=== PATIENT | female | born 1960 | race African-American/Black ===

== ENCOUNTER 2017-05-20 12:29 | Inpatient (IN) | payer MEDICARE, OTHER ==
[~2017-05-20] VITALS: Ht 170.2 cm; Wt 69.9 kg
[2017-05-20] MEDS ORDERED: AMLO2.5T45 PO (12:36)
[2017-05-20] MEDS ORDERED: CYCL5TAB PO (12:36)
[2017-05-20] MEDS ORDERED: TRAM50TA3 PO ×2 (12:36→23:08)
[2017-05-20] MEDS ORDERED: HYDR12.529 PO (12:36)
[2017-05-20] MEDS ORDERED: METO-396 PO (12:36)
[2017-05-20] MEDS ORDERED: ONDANSETRON HCL 4MG/2ML VIAL IV STA (13:35)
[2017-05-20] MEDS ORDERED: MORPHINE SULFATE 4 MG/ML CPJ (NOT FOR IM USE) IV STA (13:35)
[2017-05-20] MEDS ORDERED: NITROGLYCERIN OINT 1GM/INCH UDPKT TD STA (13:35)
[2017-05-20] MEDS ORDERED: ASPIRIN 325MG TABLET PO ONE (13:45)
[2017-05-20 14:24] LABS: BASOPHILS % 0.4 % (0.0-2.0); EOSINOPHILS % 0.1 % (0.0-5.0); HEMATOCRIT. 38.6 % (36.0-48.0); HEMOGLOBIN. 13.1 g/dL (12.0-16.0); LYMPHOCYTES % 9.6 % (20.0-50.0); MEAN CORPUSCULAR HEMOGLOBIN 32.8 pg (28.0-32.0); MEAN CORPUSCULAR VOLUME 96.8 fL (81.0-99.0); MEAN PLATELET VOLUME 8.2 fl (7.4-10.4); NEUTROPHILS % 75.9 % (40.0-76.0); PLATELET 268 x1000/uL (130-400); RED BLOOD CELL COUNT 3.98 mill/uL (4.2-5.4); RED CELL DISTRIBUTION WIDTH 15.5 % (11.6-14.6)
[2017-05-20 14:35] LABS: D-DIMER 2.65 mg/L FEU (<0.50); INR 1.3; PARTIAL THROMBOPLASTIN TIME 27.5 sec (23.4-31.0)
[2017-05-20 14:39] LABS: CARBON DIOXIDE 31 mEq/L (21-32); CHLORIDE 93 mEq/L (98-107); CREATINE KINASE 34 IU/L (26-192); TROPONIN I < 0.02 ng/mL (0.00-0.04)
[2017-05-20] MEDS ORDERED: POTASSIUM CHLORIDE 20MEQ TABLET SR PO ONE (14:45)
[2017-05-20] MEDS ORDERED: KCL 10MEQ/50ML PREMIX 50 ML IV ONE (14:45)
[2017-05-20] MEDS ORDERED: IOHEXOL-350 100 ML BOTTLE ONE (15:11)
[2017-05-20] MEDS ORDERED: METOPROLOL TARTRATE 25MG TABLET PO SCH (17:00)
[2017-05-20] MEDS ORDERED: DILTIAZEM HCL 5MG/ML 5ML VIAL IV ONE (17:15)
[2017-05-20] MEDS ORDERED: MAGNESIUM 1 G PREMIX 100 ML IV ONE (17:30)
[2017-05-20] MEDS ORDERED: DILTIAZEM HCL 5MG/ML 5ML VIAL IV PRN (18:38)
[2017-05-20] MEDS ORDERED: ENOXAPARIN 80MG/0.8ML SYR SUBCUT SCH (18:39)
[2017-05-20] MEDS ORDERED: MORPHINE SULFATE 4 MG/ML CPJ (NOT FOR IM USE) IV PRN (19:30)
[2017-05-20 19:52] VITALS: BP 133/95
[2017-05-20 20:00] VITALS: BP 133/95
[2017-05-20] MEDS: AMLODIPINE 5MG TABLET PO SCH (21:38)
[2017-05-20] MEDS ORDERED: ASPI-1159 PO (23:08)
[2017-05-20] MEDS ORDERED: GABA-531 PO (23:08)
[2017-05-20] MEDS ORDERED: IBUP-2028 PO (23:08)
[2017-05-20 23:43] VITALS: BP 127/96
[2017-05-20] MEDS: MORPHINE SULFATE 10 MG/ML CPJ IV PRN (23:54)
[2017-05-21 05:09] VITALS: BP 116/72
[2017-05-21] MEDS: MORPHINE SULFATE 10 MG/ML CPJ IV PRN ×3 (05:20→16:12)
[2017-05-21 06:52] LABS: HEMATOCRIT. 34.7 % (36.0-48.0); HEMOGLOBIN. 11.8 g/dL (12.0-16.0); MEAN CORPUSCULAR HEMOGLOBIN 32.9 pg (28.0-32.0); MEAN CORPUSCULAR VOLUME 96.9 fL (81.0-99.0); MEAN PLATELET VOLUME 8.8 fl (7.4-10.4); PLATELET 248 x1000/uL (130-400); RED BLOOD CELL COUNT 3.58 mill/uL (4.2-5.4); RED CELL DISTRIBUTION WIDTH 15.4 % (11.6-14.6)
[2017-05-21 08:51] LABS: CARBON DIOXIDE 29 mEq/L (21-32); CHLORIDE 92 mEq/L (98-107)
[2017-05-21] MEDS ORDERED: MEDICATION NOT ON FORMULARY EA (Metoprolol Succinate 100 MG) PO SCH (09:00)
[2017-05-21 09:03] LABS: CLARITY URINE TURBID (CLEAR); COLOR URINE DARK YELLOW (YELLOW); GLUCOSE URINE NEGATIVE (NEGATIVE); KETONES URINE NEGATIVE (NEGATIVE); LEUKOCYTE ESTERASE URINE 2+ (NEGATIVE); NITRITE URINE NEGATIVE (NEGATIVE); OCCULT BLOOD URINE 1+ (NEGATIVE); PH URINE 5.5 (4.5-8.0); PROTEIN URINE NEGATIVE (NEGATIVE); SPECIFIC GRAVITY URINE 1.047 (1.005-1.030)
[2017-05-21 09:42] LABS: *AMPHETAMINES SCREEN URINE NEGATIVE (NEGATIVE); *BARBITURATES SCREEN URINE NEGATIVE (NEGATIVE); *BENZODIAZEPINES SCREEN URINE NEGATIVE (NEGATIVE); *COCAINE SCREEN URINE NEGATIVE (NEGATIVE); CANNABINOID URINE SCREEN PRESUMTIVE POSITIVE (NEGATIVE); METHADONE URINE SCREEN NEGATIVE (NEGATIVE); OPIATES URINE SCREEN PRESUMTIVE POSITIVE (NEGATIVE); PHENCYCLIDINE URINE SCREEN NEGATIVE (NEGATIVE)
[2017-05-21] MEDS: ENOXAPARIN 40MG/0.4ML SYR SUBCUT SCH (10:57)
[2017-05-21] MEDS: AMLODIPINE 5MG TABLET PO SCH ×2 (10:57→21:21)
[2017-05-21] MEDS: ASPIRIN 81MG EC TABLET PO SCH (10:58)
[2017-05-21 12:22] VITALS: BP 132/92
[2017-05-21 12:30] LABS: HEPATITIS B SURFACE ANTIGEN NEGATIVE
[2017-05-21 12:57] LABS: HEPATITIS B CORE AB IGM NEGATIVE
[2017-05-21 12:59] LABS: HEPATITIS A AB IGM NEGATIVE (NEGATIVE)
[2017-05-21] MEDS ORDERED: POTASSIUM CHLORIDE INJ 40 MEQ in DEXT 5% WATER 250 ML IV SCH (13:00)
[2017-05-21] MEDS ORDERED: IBUPROFEN 800MG TABLET PO PRN (15:15)
[2017-05-21 16:00] VITALS: BP 109/83
[2017-05-21] MEDS ORDERED: MAGNESIUM 2 G PREMIX 50 ML IV SCH (17:00)
[2017-05-21] MEDS: CEFTRIAXONE 1 G PREMIX 50 ML IV SCH (17:42)
[2017-05-21] MEDS: DEXT 5%/0.45% NACL KCL 20MEQ/L 1,000 ML IV SCH (17:42)
[2017-05-21 20:00] VITALS: BP 129/92
[2017-05-21] MEDS: METOPROLOL TARTRATE 50MG TABLET PO SCH (21:21)
[2017-05-22] VITALS: BP 111/79
[2017-05-22 04:00] VITALS: BP 130/86
[2017-05-22] MEDS: MORPHINE SULFATE 10 MG/ML CPJ IV PRN ×2 (06:03→20:57)
[2017-05-22 06:53] LABS: HEMATOCRIT 35.5 % (36.0-48.0); HEMOGLOBIN 12.1 g/dL (12.0-16.0); MEAN CORPUSCULAR HEMOGLOBIN 32.8 pg (28.0-32.0); MEAN CORPUSCULAR VOLUME 96.6 fL (81.0-99.0); PLATELET 246 x1000/uL (130-400); RED BLOOD CELL COUNT 3.68 mill/uL (4.2-5.4); RED CELL DISTRIBUTION WIDTH 15.1 % (11.6-14.6)
[2017-05-22 08:28] LABS: CARBON DIOXIDE 27 mEq/L (21-32); CHLORIDE 94 mEq/L (98-107)
[2017-05-22 08:57] VITALS: BP 120/89
[2017-05-22] MEDS: ENOXAPARIN 40MG/0.4ML SYR SUBCUT SCH (09:56)
[2017-05-22] MEDS: GABAPENTIN 300MG CAPSULE PO PRN ×2 (09:57→17:48)
[2017-05-22] MEDS: ASPIRIN 81MG EC TABLET PO SCH (09:57)
[2017-05-22] MEDS: METOPROLOL TARTRATE 50MG TABLET PO SCH ×2 (09:57→20:55)
[2017-05-22] MEDS: AMLODIPINE 5MG TABLET PO SCH ×2 (09:57→20:55)
[2017-05-22 12:00] VITALS: BP 113/77
[2017-05-22] MEDS ORDERED: PANTOPRAZOLE SODIUM 40 MG/VIAL IV SCH (12:30)
[2017-05-22] MEDS: DEXT 5%/0.45% NACL KCL 20MEQ/L 1,000 ML IV SCH ×2 (13:00→21:02)
[2017-05-22 14:08] LABS: PLATELET ESTIMATE NORMAL
[2017-05-22] MEDS ORDERED: POTASSIUM CHLORIDE INJ 40 MEQ in DEXT 5% WATER 250 ML IV NR (14:30)
[2017-05-22 16:00] VITALS: BP 113/80
[2017-05-22] MEDS: CEFTRIAXONE 1 G PREMIX 50 ML IV SCH (17:48)
[2017-05-22 20:00] VITALS: BP 98/53
[2017-05-23] VITALS: BP 114/90
[2017-05-23 04:00] VITALS: BP 119/86
[2017-05-23 07:54] LABS: CARBON DIOXIDE 26 mEq/L (21-32); CHLORIDE 101 mEq/L (98-107)
[2017-05-23 08:00] VITALS: BP 120/85
[2017-05-23 08:09] LABS: BASOPHILS % 0.8 % (0.0-2.0); EOSINOPHILS % 0.6 % (0.0-5.0); HEMATOCRIT. 33.6 % (36.0-48.0); HEMOGLOBIN. 11.1 g/dL (12.0-16.0); LYMPHOCYTES % 21.9 % (20.0-50.0); MEAN CORPUSCULAR HEMOGLOBIN 32.7 pg (28.0-32.0); MEAN CORPUSCULAR VOLUME 98.8 fL (81.0-99.0); MEAN PLATELET VOLUME 9.1 fl (7.4-10.4); MONOCYTES % 12.4 % (2.0-8.0); NEUTROPHILS % 64.3 % (40.0-76.0); PLATELET 243 x1000/uL (130-400); RED CELL DISTRIBUTION WIDTH 15.5 % (11.6-14.6)
[2017-05-23] MEDS: METOPROLOL TARTRATE 50MG TABLET PO SCH ×2 (08:28→21:26)
[2017-05-23] MEDS: AMLODIPINE 5MG TABLET PO SCH ×2 (08:29→21:32)
[2017-05-23] MEDS: ENOXAPARIN 40MG/0.4ML SYR SUBCUT SCH (08:38)
[2017-05-23 12:00] VITALS: BP 137/87
[2017-05-23] MEDS: MORPHINE SULFATE 10 MG/ML CPJ IV PRN ×2 (13:04→17:26)
[2017-05-23 16:00] VITALS: BP 129/90
[2017-05-23] MEDS ORDERED: POTASSIUM CHLORIDE 20MEQ TABLET SR PO SCH (16:00)
[2017-05-23 16:20] LABS: AMYLASE 35 IU/L (25-115)
[2017-05-23] MEDS: CEFTRIAXONE 1 G PREMIX 50 ML IV SCH (17:25)
[2017-05-23] MEDS: POTASSIUM CHLORIDE INJ 10 MEQ in SODIUM CHLORIDE 0.9% 1,000 ML IV SCH (17:46)
[2017-05-23] MEDS ORDERED: ACETAMINOPHEN 325MG TABLET PO PRN ×2 (19:00→19:15)
[2017-05-23] MEDS ORDERED: CLONIDINE 0.1MG TABLET PO PRN (19:00)
[2017-05-23] MEDS ORDERED: POTASSIUM CHLORIDE 20MEQ TABLET SR PO NR (19:00)
[2017-05-23 20:00] VITALS: BP 126/93
[2017-05-24] VITALS: BP 127/82
[2017-05-24] MEDS: MORPHINE SULFATE 10 MG/ML CPJ IV PRN ×3 (00:58→13:54)
[2017-05-24 04:00] VITALS: BP 124/89
[2017-05-24 06:38] LABS: HEMATOCRIT. 34.2 % (36.0-48.0); HEMOGLOBIN. 11.5 g/dL (12.0-16.0); MEAN CORPUSCULAR HEMOGLOBIN 33.2 pg (28.0-32.0); MEAN CORPUSCULAR VOLUME 98.5 fL (81.0-99.0); MEAN PLATELET VOLUME 8.7 fl (7.4-10.4); PLATELET 245 x1000/uL (130-400); RED BLOOD CELL COUNT 3.47 mill/uL (4.2-5.4); RED CELL DISTRIBUTION WIDTH 15.4 % (11.6-14.6)
[2017-05-24 07:09] LABS: CARBON DIOXIDE 23 mEq/L (21-32); CHLORIDE 102 mEq/L (98-107)
[2017-05-24] MEDS: POTASSIUM CHLORIDE INJ 10 MEQ in SODIUM CHLORIDE 0.9% 1,000 ML IV SCH ×2 (08:02→21:05)
[2017-05-24] MEDS: AMLODIPINE 5MG TABLET PO SCH ×2 (08:03→21:05)
[2017-05-24] MEDS: ENOXAPARIN 40MG/0.4ML SYR SUBCUT SCH (08:03)
[2017-05-24] MEDS: METOPROLOL TARTRATE 50MG TABLET PO SCH ×2 (08:03→21:05)
[2017-05-24 08:04] VITALS: BP 134/90
[2017-05-24 11:07] LABS: PLATELET ESTIMATE NORMAL
[2017-05-24 12:00] VITALS: BP 112/79
[2017-05-24] MEDS: LEVOFLOXACIN 500MG PREMIX 100 ML IV SCH (13:54)
[2017-05-24 16:00] VITALS: BP 124/90
[2017-05-24 20:00] VITALS: BP 125/91
[2017-05-25] VITALS: BP 111/78
[2017-05-25] MEDS: MORPHINE SULFATE 10 MG/ML CPJ IV PRN ×4 (00:23→21:10)
[2017-05-25 04:00] VITALS: BP 117/85
[2017-05-25 06:36] LABS: HEMATOCRIT. 35.7 % (36.0-48.0); MEAN CORPUSCULAR VOLUME 98.2 fL (81.0-99.0); MEAN PLATELET VOLUME 8.7 fl (7.4-10.4); PLATELET 236 x1000/uL (130-400); RED BLOOD CELL COUNT 3.63 mill/uL (4.2-5.4); RED CELL DISTRIBUTION WIDTH 15.5 % (11.6-14.6)
[2017-05-25 06:47] LABS: CARBON DIOXIDE 22 mEq/L (21-32); CHLORIDE 101 mEq/L (98-107)
[2017-05-25 08:00] VITALS: BP 117/81
[2017-05-25] MEDS ORDERED: DEXTROSE 50% WATER 50ML SYRINGE IV NR (08:15)
[2017-05-25] MEDS: MECLIZINE 12.5MG TABLET PO PRN (09:00)
[2017-05-25] MEDS: ENOXAPARIN 40MG/0.4ML SYR SUBCUT SCH (09:00)
[2017-05-25] MEDS: AMLODIPINE 5MG TABLET PO SCH ×2 (09:01→21:11)
[2017-05-25] MEDS: METOPROLOL TARTRATE 50MG TABLET PO SCH ×2 (09:01→21:10)
[2017-05-25] MEDS ORDERED: THROAT LOZENGES-BENZOCAINE/MENTH/CETYLPYRD CL LOZENGES MM PRN (11:00)
[2017-05-25] MEDS: PANTOPRAZOLE SODIUM 40 MG/VIAL IV SCH (12:26)
[2017-05-25] MEDS: POTASSIUM CHLORIDE INJ 10 MEQ in SODIUM CHLORIDE 0.9% 1,000 ML IV SCH ×2 (12:26→21:11)
[2017-05-25 12:27] VITALS: BP 112/87
[2017-05-25] MEDS: LEVOFLOXACIN 500MG PREMIX 100 ML IV SCH (13:03)
[2017-05-25] MEDS: METRONIDAZOLE 500 MG PREMIX 100 ML IV SCH ×2 (14:25→21:11)
[2017-05-25 15:52] VITALS: BP 122/83
[2017-05-25 16:56] LABS: PLATELET ESTIMATE NORMAL
[2017-05-25 20:00] VITALS: BP 116/77
[2017-05-26] VITALS: BP 113/83
[2017-05-26 04:00] VITALS: BP 116/83
[2017-05-26] MEDS: METRONIDAZOLE 500 MG PREMIX 100 ML IV SCH ×3 (06:24→21:24)
[2017-05-26 06:45] LABS: HEMATOCRIT. 34.4 % (36.0-48.0); HEMOGLOBIN. 11.7 g/dL (12.0-16.0); MEAN CORPUSCULAR HEMOGLOBIN 32.9 pg (28.0-32.0); MEAN CORPUSCULAR VOLUME 96.4 fL (81.0-99.0); MEAN PLATELET VOLUME 8.8 fl (7.4-10.4); PLATELET 246 x1000/uL (130-400); RED BLOOD CELL COUNT 3.57 mill/uL (4.2-5.4); RED CELL DISTRIBUTION WIDTH 15.5 % (11.6-14.6)
[2017-05-26 08:15] VITALS: BP 117/84
[2017-05-26 08:19] LABS: CARBON DIOXIDE 24 mEq/L (21-32); CHLORIDE 100 mEq/L (98-107)
[2017-05-26] MEDS: PANTOPRAZOLE SODIUM 40 MG/VIAL IV SCH (09:39)
[2017-05-26] MEDS: ENOXAPARIN 40MG/0.4ML SYR SUBCUT SCH (09:40)
[2017-05-26] MEDS: AMLODIPINE 5MG TABLET PO SCH ×2 (09:40→21:24)
[2017-05-26] MEDS: METOPROLOL TARTRATE 50MG TABLET PO SCH ×2 (09:41→21:24)
[2017-05-26] MEDS: LEVOFLOXACIN 500MG PREMIX 100 ML IV SCH (14:28)
[2017-05-26 17:02] VITALS: BP 119/80
[2017-05-26 17:05] LABS: PLATELET ESTIMATE NORMAL
[2017-05-26] MEDS: ONDANSETRON HCL 4MG/2ML VIAL IV PRN (17:42)
[2017-05-26] MEDS: MORPHINE SULFATE 2 MG/ML CPJ (NOT FOR IM USE) IV PRN (17:44)
[2017-05-26] MEDS: POTASSIUM CHLORIDE INJ 10 MEQ in SODIUM CHLORIDE 0.9% 1,000 ML IV SCH (17:45)
[2017-05-26] MEDS: APIXABAN 5 MG TABLET PO SCH (18:13)
[2017-05-26 20:37] VITALS: BP 112/81
[2017-05-27] MEDS: MORPHINE SULFATE 2 MG/ML CPJ (NOT FOR IM USE) IV PRN ×4 (00:01→20:45)
[2017-05-27 00:38] VITALS: BP 105/78
[2017-05-27 04:00] VITALS: BP 117/81
[2017-05-27] MEDS: METRONIDAZOLE 500 MG PREMIX 100 ML IV SCH ×3 (05:34→23:16)
[2017-05-27] MEDS: ONDANSETRON HCL 4MG/2ML VIAL IV PRN ×2 (08:19→16:57)
[2017-05-27 08:20] VITALS: BP 105/78
[2017-05-27] MEDS: AMLODIPINE 5MG TABLET PO SCH ×2 (09:00→20:42)
[2017-05-27] MEDS: METOPROLOL TARTRATE 50MG TABLET PO SCH ×2 (09:00→20:42)
[2017-05-27 09:06] LABS: DRVVT LA 42.3 sec (0.0-47.0); LUPUS ANTICOAG INTERPRETATION Comment: (.); PROTEIN C FUNCTIONAL 49 % (73-180); PTT-LA 42.8 sec (0.0-51.9)
[2017-05-27] MEDS: POTASSIUM CHLORIDE INJ 10 MEQ in SODIUM CHLORIDE 0.9% 1,000 ML IV SCH ×2 (09:10→22:04)
[2017-05-27] MEDS: APIXABAN 5 MG TABLET PO SCH ×2 (09:14→20:41)
[2017-05-27] MEDS: PANTOPRAZOLE SODIUM 40 MG/VIAL IV SCH (09:14)
[2017-05-27 12:22] VITALS: BP 115/85
[2017-05-27] MEDS: LEVOFLOXACIN 500MG PREMIX 100 ML IV SCH (13:24)
[2017-05-27 13:28] LABS: HEMOGLOBIN 11.5 g/dL (12.0-16.0)
[2017-05-27 16:25] VITALS: BP 114/81
[2017-05-27] MEDS ORDERED: KCL 20MEQ/100ML PREMIX 100 ML IV NR (17:00)
[2017-05-27] MEDS ORDERED: IOHEXOL-350 100 ML BOTTLE ONE (18:53)
[2017-05-27 20:00] VITALS: BP 118/86
[2017-05-28 00:42] VITALS: BP 104/79
[2017-05-28 04:00] VITALS: BP 117/89
[2017-05-28] MEDS: METRONIDAZOLE 500 MG PREMIX 100 ML IV SCH ×3 (05:10→21:45)
[2017-05-28] MEDS: MORPHINE SULFATE 2 MG/ML CPJ (NOT FOR IM USE) IV PRN ×4 (05:10→21:46)
[2017-05-28 06:34] LABS: HEMATOCRIT. 34.4 % (36.0-48.0); HEMOGLOBIN. 11.6 g/dL (12.0-16.0); MEAN CORPUSCULAR HEMOGLOBIN 32.6 pg (28.0-32.0); MEAN CORPUSCULAR VOLUME 96.8 fL (81.0-99.0); MEAN PLATELET VOLUME 8.8 fl (7.4-10.4); PLATELET 273 x1000/uL (130-400); RED BLOOD CELL COUNT 3.55 mill/uL (4.2-5.4); RED CELL DISTRIBUTION WIDTH 15.5 % (11.6-14.6)
[2017-05-28 07:03] LABS: CARBON DIOXIDE 22 mEq/L (21-32); CHLORIDE 101 mEq/L (98-107)
[2017-05-28 08:01] VITALS: BP 114/80
[2017-05-28] MEDS: PANTOPRAZOLE SODIUM 40 MG/VIAL IV SCH (09:27)
[2017-05-28] MEDS: APIXABAN 5 MG TABLET PO SCH ×2 (09:27→17:38)
[2017-05-28] MEDS: METOPROLOL TARTRATE 50MG TABLET PO SCH ×2 (09:29→21:45)
[2017-05-28] MEDS: AMLODIPINE 5MG TABLET PO SCH ×2 (09:29→21:45)
[2017-05-28] MEDS: POTASSIUM CHLORIDE INJ 10 MEQ in SODIUM CHLORIDE 0.9% 1,000 ML IV SCH (11:03)
[2017-05-28 12:00] VITALS: BP 117/82
[2017-05-28] MEDS ORDERED: POTASSIUM CHLORIDE INJ 40 MEQ in DEXT 5% WATER 250 ML IV NR (12:00)
[2017-05-28] MEDS: ONDANSETRON HCL 4MG/2ML VIAL IV PRN (13:11)
[2017-05-28 16:00] VITALS: BP 107/79
[2017-05-28 16:30] LABS: ATYPICAL LYMPHOCYTES 1; PLATELET ESTIMATE NORMAL
[2017-05-28] MEDS: LEVOFLOXACIN 500MG PREMIX 100 ML IV SCH (17:38)
[2017-05-28 20:00] VITALS: BP 128/83
[2017-05-29] VITALS: BP 114/79
[2017-05-29] MEDS: POTASSIUM CHLORIDE INJ 10 MEQ in SODIUM CHLORIDE 0.9% 1,000 ML IV SCH ×2 (02:48→11:23)
[2017-05-29 04:00] VITALS: BP 108/80
[2017-05-29] MEDS: METRONIDAZOLE 500 MG PREMIX 100 ML IV SCH ×3 (05:58→21:34)
[2017-05-29] MEDS: MORPHINE SULFATE 2 MG/ML CPJ (NOT FOR IM USE) IV PRN ×3 (05:59→21:36)
[2017-05-29 06:45] LABS: BASOPHILS % 0.5 % (0.0-2.0); EOSINOPHILS % 0.2 % (0.0-5.0); HEMATOCRIT. 35.6 % (36.0-48.0); HEMOGLOBIN. 11.9 g/dL (12.0-16.0); LYMPHOCYTES % 9.5 % (20.0-50.0); MEAN CORPUSCULAR HEMOGLOBIN 32.4 pg (28.0-32.0); MEAN PLATELET VOLUME 8.7 fl (7.4-10.4); MONOCYTES % 14.9 % (2.0-8.0); NEUTROPHILS % 74.9 % (40.0-76.0); PLATELET 307 x1000/uL (130-400); RED BLOOD CELL COUNT 3.67 mill/uL (4.2-5.4); RED CELL DISTRIBUTION WIDTH 15.3 % (11.6-14.6)
[2017-05-29 06:59] LABS: CARBON DIOXIDE 24 mEq/L (21-32); CHLORIDE 101 mEq/L (98-107)
[2017-05-29 08:00] VITALS: BP 109/77
[2017-05-29] MEDS: APIXABAN 5 MG TABLET PO SCH ×2 (08:53→16:19)
[2017-05-29] MEDS: PANTOPRAZOLE SODIUM 40 MG/VIAL IV SCH (08:54)
[2017-05-29] MEDS: AMLODIPINE 5MG TABLET PO SCH ×2 (08:54→21:34)
[2017-05-29] MEDS: METOPROLOL TARTRATE 50MG TABLET PO SCH ×2 (08:54→21:34)
[2017-05-29 12:00] VITALS: BP 105/79
[2017-05-29] MEDS: LEVOFLOXACIN 500MG PREMIX 100 ML IV SCH (13:48)
[2017-05-29] MEDS ORDERED: POTASSIUM CHLORIDE INJ 40 MEQ in DEXT 5% WATER 250 ML IV SCH (14:00)
[2017-05-29 16:00] VITALS: BP 109/76
[2017-05-29 20:00] VITALS: BP 122/85
[2017-05-30] VITALS: BP 114/83
[2017-05-30 03:17] VITALS: BP 109/79
[2017-05-30] MEDS: MORPHINE SULFATE 2 MG/ML CPJ (NOT FOR IM USE) IV PRN ×4 (03:28→21:55)
[2017-05-30] MEDS: METRONIDAZOLE 500 MG PREMIX 100 ML IV SCH ×3 (05:25→21:51)
[2017-05-30 08:00] VITALS: BP 113/85
[2017-05-30] MEDS: POTASSIUM CHLORIDE INJ 10 MEQ in SODIUM CHLORIDE 0.9% 1,000 ML IV SCH ×2 (08:58→21:54)
[2017-05-30] MEDS: APIXABAN 5 MG TABLET PO SCH ×2 (08:59→16:38)
[2017-05-30] MEDS: FAMOTIDINE 20MG/2ML VIAL IV SCH ×2 (08:59→21:54)
[2017-05-30] MEDS: METOPROLOL TARTRATE 50MG TABLET PO SCH ×2 (08:59→21:00)
[2017-05-30] MEDS: AMLODIPINE 5MG TABLET PO SCH ×2 (09:00→21:00)
[2017-05-30] MEDS: ONDANSETRON HCL 4MG/2ML VIAL IV PRN (09:11)
[2017-05-30 11:47] VITALS: BP 114/76
[2017-05-30] MEDS: LEVOFLOXACIN 500MG PREMIX 100 ML IV SCH (12:44)
[2017-05-30 16:00] VITALS: BP 118/82
[2017-05-30 20:00] VITALS: BP 107/80
[2017-05-31] VITALS: BP 126/90
[2017-05-31 04:00] VITALS: BP 122/90
[2017-05-31] MEDS: METRONIDAZOLE 500 MG PREMIX 100 ML IV SCH ×3 (05:47→21:19)
[2017-05-31] MEDS: MORPHINE SULFATE 2 MG/ML CPJ (NOT FOR IM USE) IV PRN ×4 (05:52→18:28)
[2017-05-31 06:52] LABS: BASOPHILS % 0.6 % (0.0-2.0); EOSINOPHILS % 0.1 % (0.0-5.0); HEMATOCRIT. 36.6 % (36.0-48.0); HEMOGLOBIN. 12.2 g/dL (12.0-16.0); LYMPHOCYTES % 9.7 % (20.0-50.0); MEAN CORPUSCULAR HEMOGLOBIN 32.2 pg (28.0-32.0); MEAN CORPUSCULAR VOLUME 96.8 fL (81.0-99.0); MEAN PLATELET VOLUME 8.6 fl (7.4-10.4); MONOCYTES % 12.3 % (2.0-8.0); NEUTROPHILS % 77.3 % (40.0-76.0); PLATELET 329 x1000/uL (130-400); RED BLOOD CELL COUNT 3.78 mill/uL (4.2-5.4); RED CELL DISTRIBUTION WIDTH 15.5 % (11.6-14.6)
[2017-05-31 07:31] LABS: CARBON DIOXIDE 21 mEq/L (21-32); CHLORIDE 102 mEq/L (98-107)
[2017-05-31 08:08] VITALS: BP 116/80
[2017-05-31] MEDS: AMLODIPINE 5MG TABLET PO SCH ×2 (09:17→21:00)
[2017-05-31] MEDS: APIXABAN 5 MG TABLET PO SCH ×2 (09:17→18:27)
[2017-05-31] MEDS: FAMOTIDINE 20MG/2ML VIAL IV SCH ×2 (09:17→21:18)
[2017-05-31] MEDS: METOPROLOL TARTRATE 50MG TABLET PO SCH ×2 (09:18→21:00)
[2017-05-31 12:10] VITALS: BP 106/80
[2017-05-31] MEDS: LEVOFLOXACIN 500MG PREMIX 100 ML IV SCH (13:14)
[2017-05-31] MEDS: POTASSIUM CHLORIDE INJ 40 MEQ in SODIUM CHLORIDE 0.9% 1,000 ML IV SCH (14:46)
[2017-05-31 16:26] VITALS: BP 112/83
[2017-05-31] MEDS: MECLIZINE 12.5MG TABLET PO PRN (18:27)
[2017-05-31] MEDS: ONDANSETRON HCL 4MG/2ML VIAL IV PRN (18:33)
[2017-05-31 20:00] VITALS: BP 107/75
[2017-06-01] VITALS: BP 109/86
[2017-06-01] MEDS: MORPHINE SULFATE 2 MG/ML CPJ (NOT FOR IM USE) IV PRN ×5 (00:17→23:58)
[2017-06-01 04:00] VITALS: BP 143/75
[2017-06-01] MEDS: POTASSIUM CHLORIDE INJ 40 MEQ in SODIUM CHLORIDE 0.9% 1,000 ML IV SCH ×2 (04:35→09:27)
[2017-06-01] MEDS: METRONIDAZOLE 500 MG PREMIX 100 ML IV SCH ×2 (05:50→13:52)
[2017-06-01 07:41] LABS: BASOPHILS % 0.5 % (0.0-2.0); EOSINOPHILS % 0.4 % (0.0-5.0); LYMPHOCYTES % 12.7 % (20.0-50.0); MEAN CORPUSCULAR HEMOGLOBIN 32.7 pg (28.0-32.0); MEAN CORPUSCULAR VOLUME 95.6 fL (81.0-99.0); MEAN PLATELET VOLUME 8.5 fl (7.4-10.4); MONOCYTES % 13.3 % (2.0-8.0); NEUTROPHILS % 73.1 % (40.0-76.0); PLATELET 342 x1000/uL (130-400); RED BLOOD CELL COUNT 3.66 mill/uL (4.2-5.4); RED CELL DISTRIBUTION WIDTH 15.6 % (11.6-14.6)
[2017-06-01 08:00] VITALS: BP 117/84
[2017-06-01 08:13] LABS: CARBON DIOXIDE 22 mEq/L (21-32); CHLORIDE 102 mEq/L (98-107)
[2017-06-01] MEDS: AMLODIPINE 5MG TABLET PO SCH ×2 (09:21→21:00)
[2017-06-01] MEDS: FAMOTIDINE 20MG/2ML VIAL IV SCH ×2 (09:21→21:22)
[2017-06-01] MEDS: METOPROLOL TARTRATE 50MG TABLET PO SCH ×2 (09:21→21:00)
[2017-06-01] MEDS: APIXABAN 5 MG TABLET PO SCH ×2 (09:22→16:49)
[2017-06-01] MEDS: ONDANSETRON HCL 4MG/2ML VIAL IV PRN (09:28)
[2017-06-01] MEDS ORDERED: POTASSIUM CHLORIDE 20MEQ TABLET SR PO NR (10:45)
[2017-06-01 11:04] LABS: INR 2.1; PROTHROMBIN TIME 21.9 sec (9.4-11.6)
[2017-06-01 12:00] VITALS: BP 112/83
[2017-06-01 20:00] VITALS: BP 97/75
[2017-06-02] VITALS: BP 111/80
[2017-06-02 04:00] VITALS: BP 115/84
[2017-06-02 06:37] LABS: BASOPHILS % 0.9 % (0.0-2.0); EOSINOPHILS % 0.3 % (0.0-5.0); HEMATOCRIT. 37.1 % (36.0-48.0); HEMOGLOBIN. 12.5 g/dL (12.0-16.0); LYMPHOCYTES % 12.8 % (20.0-50.0); MEAN CORPUSCULAR HEMOGLOBIN 32.5 pg (28.0-32.0); MEAN CORPUSCULAR VOLUME 96.2 fL (81.0-99.0); MONOCYTES % 14.5 % (2.0-8.0); NEUTROPHILS % 71.5 % (40.0-76.0); PLATELET 375 x1000/uL (130-400); RED BLOOD CELL COUNT 3.85 mill/uL (4.2-5.4); RED CELL DISTRIBUTION WIDTH 15.7 % (11.6-14.6)
[2017-06-02 07:02] LABS: CARBON DIOXIDE 22 mEq/L (21-32); CHLORIDE 105 mEq/L (98-107)
[2017-06-02 08:00] VITALS: BP 109/76
[2017-06-02] MEDS: FAMOTIDINE 20MG/2ML VIAL IV SCH (08:32)
[2017-06-02] MEDS: APIXABAN 5 MG TABLET PO SCH (08:32)
[2017-06-02] MEDS: METOPROLOL TARTRATE 50MG TABLET PO SCH (08:33)
[2017-06-02] MEDS: MORPHINE SULFATE 2 MG/ML CPJ (NOT FOR IM USE) IV PRN (08:33)
[2017-06-02] MEDS: AMLODIPINE 5MG TABLET PO SCH (08:34)
[2017-06-02] MEDS ORDERED: AMLO5TAB88 PO (09:28)
[2017-06-02] MEDS ORDERED: METO50TA5 PO (09:28)
[2017-06-02] MEDS ORDERED: HYDR-522 PO (09:28)
[2017-06-02] MEDS ORDERED: GABA-531 PO (09:28)
[2017-06-02] MEDS ORDERED: APIX5TAB PO (09:28)
[2017-06-02] MEDS: POTASSIUM CHLORIDE INJ 40 MEQ in SODIUM CHLORIDE 0.9% 1,000 ML IV SCH (09:45)
[2017-06-02 11:42] VITALS: BP 120/89
[2017-06-02 12:00] VITALS: BP 124/93
== END 2017-06-02 18:00 | disposition home or self-care (01) | DRG 441 ==
LOC: ER 12:29 → 6WST 15:13 → EDBEDREQTM 15:18 → EDBEDREQ 15:18 → ENRESERV 16:51
PROVIDERS: ADMIT Internal Medicine; ATTEND Internal Medicine
DX: I81 Portal vein thrombosis (principal); K85.90 Acute pancreatitis without necrosis or infection, unspecified; E43 Unspecified severe protein-calorie malnutrition; D68.4 Acquired coagulation factor deficiency; D68.59 Other primary thrombophilia; K72.90 Hepatic failure, unspecified without coma; E83.42 Hypomagnesemia; E87.1 Hypo-osmolality and hyponatremia; I31.3 Pericardial effusion (noninflammatory); J98.11 Atelectasis; N39.0 Urinary tract infection, site not specified; I48.1 Persistent atrial fibrillation; K62.5 Hemorrhage of anus and rectum; R18.8 Other ascites; I50.9 Heart failure, unspecified; I11.0 Hypertensive heart disease with heart failure; E87.6 Hypokalemia; F10.10 Alcohol abuse, uncomplicated; F12.90 Cannabis use, unspecified, uncomplicated; F17.210 Nicotine dependence, cigarettes, uncomplicated; E86.0 Dehydration; K76.89 Other specified diseases of liver; K86.89 Other specified diseases of pancreas; R91.1 Solitary pulmonary nodule; G89.29 Other chronic pain; M54.9 Dorsalgia, unspecified; B96.89 Other specified bacterial agents as the cause of diseases classified elsewhere; T50.2X5A Adverse effect of carbonic-anhydrase inhibitors, benzothiadiazides and other diuretics, initial encounter; Z79.82 Long term (current) use of aspirin; Z79.899 Other long term (current) drug therapy; Z98.51 Tubal ligation status; Z91.19 Patient's noncompliance with other medical treatment and regimen; Z86.73 Personal history of transient ischemic attack (TIA), and cerebral infarction without residual deficits; Z79.01 Long term (current) use of anticoagulants; Y92.89 Other specified places as the place of occurrence of the external cause; Z68.24 Body mass index [BMI] 24.0-24.9, adult
CPT/HCPCS: 36415; 71010; 71275; 73030; 74174; 74177; 74181; 76700; 76705; 80048; 80053; 80305; 81001; 82105; 82150; 82248; 82270; 82550; 82962; 83605; 83690; 83735; 83880; 84443; 84478; 84484; 85014; 85018; 85025; 85027; 85303; 85306; 85379; 85610; 85613; 85730; 85732; 86038; 86705; 86709; 86803; 87040; 87077; 87086; 87186; 87340; 93005; 93306; 93970; 93976; 96365; 96366; 96375; 99291; C9113; J0696; J1650; J1956; J2270; J2405; J3475; J3480; J3490; J7030; J7040; J7050; J7060; J8597; Q9967

== ENCOUNTER 2018-09-27 14:58 | Inpatient (IN) | payer MEDICARE, OTHER ==
[~2018-09-27] VITALS: Ht 170.2 cm; Wt 60.5 kg
[~2018-09-27 14:58] MED LIST: AMLO5TAB88 PO; APIX5TAB PO; CYCL5TAB PO; GABA-531 PO; HYDR-522 PO; METO-539 PO
[2018-09-27 16:30] LABS: CHLORIDE 103 mEq/L (98-107)
[2018-09-27 16:33] LABS: INR 1.2; PARTIAL THROMBOPLASTIN TIME 27.7 sec (23.4-31.0); PROTHROMBIN TIME 12.1 sec (9.1-11.1)
[2018-09-27 16:34] LABS: ETHANOL BLOOD < 10 mg/dL
[2018-09-27 16:37] LABS: HEMATOCRIT. 26.8 % (36.0-48.0); HEMOGLOBIN. 8.4 g/dL (12.0-16.0); MEAN CORPUSCULAR HEMOGLOBIN 24.6 pg (28.0-32.0); MEAN CORPUSCULAR VOLUME 78.8 fL (81.0-99.0); MEAN PLATELET VOLUME 7.9 fl (7.4-10.4); PLATELET 155 x1000/uL (130-400); RED CELL DISTRIBUTION WIDTH 22.7 % (11.6-14.6)
[2018-09-27] MEDS ORDERED: IPRATROPIUM BROMIDE (0.02%) 0.5MG/2.5ML NEB HHN STA (16:40)
[2018-09-27] MEDS ORDERED: ONDANSETRON HCL 4MG/2ML INJ IV ONE (16:45)
[2018-09-27] MEDS ORDERED: METOPROLOL TARTRATE 5MG/5ML VIAL IV ONE (16:45)
[2018-09-27 17:00] LABS: PLATELET ESTIMATE NORMAL; T4 FREE 0.74 ng/dL (0.76-1.46)
[2018-09-27] MEDS ORDERED: POTASSIUM CHLORIDE 20MEQ TABLET SR PO ONE (17:00)
[2018-09-27] MEDS ORDERED: FUROSEMIDE 20MG/2ML VIAL IVP ONE (17:00)
[2018-09-27] MEDS ORDERED: MAGNESIUM 2 G PREMIX 50 ML IV ONE (17:15)
[2018-09-27 18:06] LABS: *AMPHETAMINES SCREEN URINE NEGATIVE (NEGATIVE); *BARBITURATES SCREEN URINE NEGATIVE (NEGATIVE); *BENZODIAZEPINES SCREEN URINE NEGATIVE (NEGATIVE); *COCAINE SCREEN URINE NEGATIVE (NEGATIVE)
[2018-09-27 18:07] LABS: CANNABINOID URINE SCREEN PRESUMTIVE POSITIVE (NEGATIVE); METHADONE URINE SCREEN NEGATIVE (NEGATIVE); OPIATES URINE SCREEN NEGATIVE (NEGATIVE); PHENCYCLIDINE URINE SCREEN NEGATIVE (NEGATIVE)
[2018-09-27] MEDS ORDERED: METOCLOPRAMIDE HCL 10MG/2ML VIAL IV ONE (18:30)
[2018-09-27] MEDS ORDERED: DIPHENHYDRAMINE 50MG/ML VIAL IV PRN (19:45)
[2018-09-27] MEDS ORDERED: IPRATROPIUM/ALBUTEROL 0.5-3(2.5)MG/3ML NEB INH PRN (19:45)
[2018-09-27] MEDS ORDERED: DIGOXIN 500MCG/2ML AMP IV ONE (22:15)
[2018-09-28] VITALS (9 sets, daily range): BP systolic 103–130; BP diastolic 58–95
[2018-09-28 00:30] LABS: CREATINE KINASE 87 IU/L (26-192)
[2018-09-28 00:31] LABS: CREATINE KINASE MB FRACTION < 1.0 ng/mL (0.5-3.6)
[2018-09-28] MEDS: ONDANSETRON HCL 4MG/2ML INJ IV PRN (00:39)
[2018-09-28] MEDS ORDERED: DEXTROSE 50% WATER 50ML SYRINGE IV PRN (02:45)
[2018-09-28] MEDS: GUAIFENESIN 200MG/10ML SUGAR FREE UDC PO PRN ×2 (06:34→18:26)
[2018-09-28] MEDS: TRAMADOL 50MG TABLET PO PRN (06:34)
[2018-09-28 06:56] LABS: CHLORIDE 101 mEq/L (98-107)
[2018-09-28 07:02] LABS: LDL CHOLESTEROL 49 mg/dL (5-100)
[2018-09-28 07:05] LABS: CREATINE KINASE 105 IU/L (26-192); HDL CHOLESTEROL 111 mg/dL (40-59)
[2018-09-28 07:06] LABS: CREATINE KINASE MB FRACTION < 1.0 ng/mL (0.5-3.6)
[2018-09-28 07:18] LABS: HEMATOCRIT. 25.9 % (36.0-48.0); HEMOGLOBIN. 8.1 g/dL (12.0-16.0); MEAN CORPUSCULAR HEMOGLOBIN 24.6 pg (28.0-32.0); MEAN CORPUSCULAR VOLUME 78.9 fL (81.0-99.0); MEAN PLATELET VOLUME 8.6 fl (7.4-10.4); PLATELET 138 x1000/uL (130-400); RED BLOOD CELL COUNT 3.29 mill/uL (4.2-5.4); RED CELL DISTRIBUTION WIDTH 22.4 % (11.6-14.6)
[2018-09-28] MEDS: BLOOD SUGAR DIAGNOSTIC STRIP TEST SCH ×4 (07:30→21:28)
[2018-09-28] MEDS: INSULIN LISPRO 100 UNITS/ML SUBCUT SCH ×4 (08:00→21:00)
[2018-09-28 08:10] LABS: PLATELET ESTIMATE NORMAL
[2018-09-28] MEDS ORDERED: DIGOXIN 500MCG/2ML AMP IV SCH (08:15)
[2018-09-28] MEDS ORDERED: ENOXAPARIN 40MG/0.4ML SYR SUBCUT SCH (09:00)
[2018-09-28] MEDS ORDERED: POTASSIUM CHLORIDE 20MEQ TABLET SR PO SCH (09:00)
[2018-09-28] MEDS ORDERED: APIXABAN 5 MG TABLET PO SCH (09:00)
[2018-09-28] MEDS: FUROSEMIDE 40MG/4ML VIAL IV SCH (09:07)
[2018-09-28] MEDS: AMLODIPINE 5MG TABLET PO SCH (09:07)
[2018-09-28 12:29] LABS: HEPATITIS B SURFACE ANTIGEN NEGATIVE
[2018-09-28 12:59] LABS: HEPATITIS A AB IGM NEGATIVE (NEGATIVE)
[2018-09-28] MEDS: IBUPROFEN 600MG TABLET PO PRN (14:02)
[2018-09-28 18:16] LABS: TOTAL IRON BINDING CAPACITY 450 ug/dL (250-450)
[2018-09-28] MEDS: METOPROLOL TARTRATE 50MG TABLET PO SCH (21:00)
[2018-09-28] MEDS: GABAPENTIN 300MG CAPSULE PO SCH (21:42)
[2018-09-29] VITALS (12 sets, daily range): BP systolic 80–110; BP diastolic 33–86
[2018-09-29] MEDS: GUAIFENESIN 200MG/10ML SUGAR FREE UDC PO PRN (00:38)
[2018-09-29] MEDS: GABAPENTIN 300MG CAPSULE PO SCH ×3 (06:14→21:05)
[2018-09-29] MEDS: TRAMADOL 50MG TABLET PO PRN (06:14)
[2018-09-29 06:55] LABS: HEMATOCRIT. 30.5 % (36.0-48.0); HEMOGLOBIN. 9.2 g/dL (12.0-16.0); MEAN CORPUSCULAR HEMOGLOBIN 24.2 pg (28.0-32.0); MEAN CORPUSCULAR VOLUME 79.8 fL (81.0-99.0); PLATELET 123 x1000/uL (130-400); RED BLOOD CELL COUNT 3.82 mill/uL (4.2-5.4)
[2018-09-29 06:58] LABS: CLARITY URINE CLEAR (CLEAR); COLOR URINE YELLOW (YELLOW); KETONES URINE TRACE (NEGATIVE); LEUKOCYTE ESTERASE URINE NEGATIVE (NEGATIVE); NITRITE URINE NEGATIVE (NEGATIVE); OCCULT BLOOD URINE NEGATIVE (NEGATIVE); PROTEIN URINE NEGATIVE (NEGATIVE); SPECIFIC GRAVITY URINE 1.014 (1.005-1.030)
[2018-09-29 07:07] LABS: CHLORIDE 93 mEq/L (98-107)
[2018-09-29] MEDS: INSULIN LISPRO 100 UNITS/ML SUBCUT SCH ×4 (08:00→21:04)
[2018-09-29] MEDS: BLOOD SUGAR DIAGNOSTIC STRIP TEST SCH ×4 (08:03→21:05)
[2018-09-29] MEDS: METOPROLOL TARTRATE 50MG TABLET PO SCH ×2 (08:11→21:00)
[2018-09-29] MEDS: AMLODIPINE 5MG TABLET PO SCH (08:11)
[2018-09-29] MEDS: FUROSEMIDE 40MG/4ML VIAL IV SCH (09:00)
[2018-09-29] MEDS ORDERED: SODIUM CHLORIDE 0.9% 1,000 ML IV SCH (09:45)
[2018-09-29] MEDS ORDERED: POTASSIUM CHLORIDE 20MEQ TABLET SR PO NR (12:15)
[2018-09-29 14:00] LABS: PLATELET ESTIMATE SLIGHTLY DECREASED
[2018-09-29] MEDS ORDERED: DIGOXIN 500MCG/2ML AMP IV SCH (14:15)
[2018-09-29] MEDS: SODIUM CHLORIDE 0.9% 1,000 ML IV SCH (14:17)
[2018-09-29] MEDS: DILTIAZEM HCL 30MG TABLET PO SCH (17:36)
[2018-09-30] VITALS (11 sets, daily range): BP systolic 90–107; BP diastolic 51–71
[2018-09-30] MEDS: TRAMADOL 50MG TABLET PO PRN ×3 (00:33→17:39)
[2018-09-30] MEDS: DILTIAZEM HCL 30MG TABLET PO SCH ×3 (06:00→12:00)
[2018-09-30] MEDS: GABAPENTIN 300MG CAPSULE PO SCH ×3 (06:08→21:00)
[2018-09-30] MEDS: SODIUM CHLORIDE 0.9% 1,000 ML IV SCH ×3 (06:09→18:40)
[2018-09-30] MEDS: INSULIN LISPRO 100 UNITS/ML SUBCUT SCH ×4 (08:00→21:00)
[2018-09-30] MEDS: METOPROLOL TARTRATE 50MG TABLET PO SCH (08:11)
[2018-09-30 08:14] LABS: HIV SCREEN 4G Non Reactive (Non Reactive)
[2018-09-30] MEDS: BLOOD SUGAR DIAGNOSTIC STRIP TEST SCH ×4 (08:17→21:15)
[2018-09-30] MEDS: FUROSEMIDE 40MG/4ML VIAL IV SCH (08:18)
[2018-09-30 08:45] LABS: HEMATOCRIT. 27.8 % (36.0-48.0); HEMOGLOBIN. 8.5 g/dL (12.0-16.0); MEAN CORPUSCULAR HEMOGLOBIN 24.3 pg (28.0-32.0); MEAN CORPUSCULAR VOLUME 79.4 fL (81.0-99.0); MEAN PLATELET VOLUME 9.4 fl (7.4-10.4); PLATELET 100 x1000/uL (130-400); RED CELL DISTRIBUTION WIDTH 22.5 % (11.6-14.6)
[2018-09-30 08:50] LABS: CHLORIDE 97 mEq/L (98-107)
[2018-09-30] MEDS: GUAIFENESIN 200MG/10ML SUGAR FREE UDC PO PRN ×2 (12:17→21:00)
[2018-09-30] MEDS ORDERED: POTASSIUM CHLORIDE 20MEQ TABLET SR PO NR (19:45)
[2018-09-30] MEDS: PANTOPRAZOLE SODIUM 40 MG/VIAL IV SCH (21:00)
[2018-09-30 23:37] LABS: HEMATOCRIT 28.6 % (36.0-48.0)
[2018-10-01] VITALS (7 sets, daily range): BP systolic 79–114; BP diastolic 51–67
[2018-10-01] MEDS: TRAMADOL 50MG TABLET PO PRN ×3 (01:42→16:12)
[2018-10-01] MEDS: GUAIFENESIN 200MG/10ML SUGAR FREE UDC PO PRN ×2 (01:42→05:25)
[2018-10-01 02:14] LABS: FOLIC ACID (FOLATE) SERUM >20 ng/mL ng/mL (>5.38)
[2018-10-01 02:25] LABS: VITAMIN B12 SERUM 571 pg/mL (211-911)
[2018-10-01] MEDS: SODIUM CHLORIDE 0.9% 1,000 ML IV SCH ×2 (04:14→16:13)
[2018-10-01] MEDS: GABAPENTIN 300MG CAPSULE PO SCH ×3 (05:25→22:25)
[2018-10-01 06:34] LABS: HEMATOCRIT. 25.4 % (36.0-48.0); HEMOGLOBIN. 7.9 g/dL (12.0-16.0); MEAN CORPUSCULAR HEMOGLOBIN 24.7 pg (28.0-32.0); MEAN CORPUSCULAR VOLUME 79.3 fL (81.0-99.0); MEAN PLATELET VOLUME 9.4 fl (7.4-10.4); PLATELET 82 x1000/uL (130-400); RED BLOOD CELL COUNT 3.21 mill/uL (4.2-5.4); RED CELL DISTRIBUTION WIDTH 22.1 % (11.6-14.6)
[2018-10-01 07:21] LABS: CHLORIDE 99 mEq/L (98-107)
[2018-10-01] MEDS: BLOOD SUGAR DIAGNOSTIC STRIP TEST SCH ×4 (07:30→20:49)
[2018-10-01] MEDS: INSULIN LISPRO 100 UNITS/ML SUBCUT SCH ×3 (08:00→17:40)
[2018-10-01] MEDS: PANTOPRAZOLE SODIUM 40 MG/VIAL IV SCH (08:44)
[2018-10-01] MEDS: FUROSEMIDE 40MG/4ML VIAL IV SCH (08:44)
[2018-10-01] MEDS: FERROUS SULFATE 325MG TABLET PO SCH ×3 (08:45→16:12)
[2018-10-01] MEDS: DILTIAZEM HCL 120MG CAPSULE CD 24HR PO SCH (08:45)
[2018-10-01] MEDS: ONDANSETRON HCL 4MG/2ML INJ IV PRN ×2 (10:00→21:45)
[2018-10-01 11:57] LABS: PLATELET ESTIMATE DECREASED
[2018-10-01] MEDS: IBUPROFEN 600MG TABLET PO PRN ×2 (12:08→22:40)
[2018-10-01] MEDS ORDERED: POTASSIUM CHLORIDE 20MEQ/PACKET PO SCH (13:30)
[2018-10-01 13:31] LABS: NUCLEATED RED BLOOD CELLS 1 /100 WBC; PLATELET ESTIMATE SLIGHTLY DECREASED
[2018-10-01 15:50] LABS: INR 1.1; PROTHROMBIN TIME 10.7 sec (9.1-11.1)
[2018-10-01] MEDS: MORPHINE SULFATE 4 MG/ML CPJ (NOT FOR IM USE) IV PRN (21:45)
[2018-10-02] VITALS: BP 97/50
[2018-10-02] MEDS: TRAMADOL 50MG TABLET PO PRN ×3 (00:53→17:58)
[2018-10-02 04:00] VITALS: BP 98/50
[2018-10-02] MEDS: GUAIFENESIN 200MG/10ML SUGAR FREE UDC PO PRN (04:58)
[2018-10-02] MEDS: MORPHINE SULFATE 4 MG/ML CPJ (NOT FOR IM USE) IV PRN (05:09)
[2018-10-02 06:42] LABS: BASOPHILS % 0.6 % (0.0-2.0); EOSINOPHILS % 0.1 % (0.0-5.0); HEMOGLOBIN. 7.7 g/dL (12.0-16.0); LYMPHOCYTES % 25.2 % (20.0-50.0); MEAN CORPUSCULAR HEMOGLOBIN 24.6 pg (28.0-32.0); MEAN CORPUSCULAR VOLUME 79.3 fL (81.0-99.0); MEAN PLATELET VOLUME 9.8 fl (7.4-10.4); MONOCYTES % 18.7 % (2.0-8.0); NEUTROPHILS % 55.4 % (40.0-76.0); PLATELET 80 x1000/uL (130-400); RED BLOOD CELL COUNT 3.15 mill/uL (4.2-5.4); RED CELL DISTRIBUTION WIDTH 22.8 % (11.6-14.6)
[2018-10-02 07:07] LABS: CHLORIDE 100 mEq/L (98-107)
[2018-10-02] MEDS: INSULIN LISPRO 100 UNITS/ML SUBCUT SCH ×5 (07:33→21:00)
[2018-10-02] MEDS: SODIUM CHLORIDE 0.9% 1,000 ML IV SCH (07:45)
[2018-10-02] MEDS: GABAPENTIN 300MG CAPSULE PO SCH ×3 (07:45→21:04)
[2018-10-02] MEDS: BLOOD SUGAR DIAGNOSTIC STRIP TEST SCH ×4 (07:56→21:00)
[2018-10-02 08:00] VITALS: BP 99/67
[2018-10-02] MEDS: DILTIAZEM HCL 120MG CAPSULE CD 24HR PO SCH (09:00)
[2018-10-02] MEDS ORDERED: POTASSIUM CHLORIDE 20MEQ TABLET SR PO NR (09:15)
[2018-10-02] MEDS: PANTOPRAZOLE SODIUM 40 MG/VIAL IV SCH (09:34)
[2018-10-02] MEDS: FUROSEMIDE 40MG/4ML VIAL IV SCH (09:34)
[2018-10-02] MEDS: FERROUS SULFATE 325MG TABLET PO SCH ×3 (09:35→17:58)
[2018-10-02 12:00] VITALS: BP 101/56
[2018-10-02] MEDS: IBUPROFEN 600MG TABLET PO PRN (13:10)
[2018-10-02 16:00] VITALS: BP 99/59
[2018-10-02 20:00] VITALS: BP 89/58
[2018-10-03] VITALS: BP 91/70
[2018-10-03 04:00] VITALS: BP 97/72
[2018-10-03] MEDS: MORPHINE SULFATE 4 MG/ML CPJ (NOT FOR IM USE) IV PRN ×2 (04:11→13:38)
[2018-10-03 05:53] LABS: HEMATOCRIT. 24.2 % (36.0-48.0); HEMOGLOBIN. 7.5 g/dL (12.0-16.0); MEAN CORPUSCULAR HEMOGLOBIN 24.6 pg (28.0-32.0); MEAN CORPUSCULAR VOLUME 79.3 fL (81.0-99.0); MEAN PLATELET VOLUME 9.6 fl (7.4-10.4); PLATELET 101 x1000/uL (130-400); RED BLOOD CELL COUNT 3.06 mill/uL (4.2-5.4); RED CELL DISTRIBUTION WIDTH 22.4 % (11.6-14.6)
[2018-10-03] MEDS: GABAPENTIN 300MG CAPSULE PO SCH ×3 (06:39→21:01)
[2018-10-03] MEDS: BLOOD SUGAR DIAGNOSTIC STRIP TEST SCH ×4 (06:45→20:49)
[2018-10-03 07:12] LABS: CHLORIDE 104 mEq/L (98-107)
[2018-10-03 08:00] VITALS: BP 109/71
[2018-10-03] MEDS: FERROUS SULFATE 325MG TABLET PO SCH ×3 (08:22→17:41)
[2018-10-03] MEDS: FUROSEMIDE 40MG/4ML VIAL IV SCH (08:22)
[2018-10-03] MEDS: PANTOPRAZOLE SODIUM 40 MG/VIAL IV SCH (08:22)
[2018-10-03] MEDS: DILTIAZEM HCL 120MG CAPSULE CD 24HR PO SCH (08:32)
[2018-10-03 09:33] LABS: NUCLEATED RED BLOOD CELLS 1 /100 WBC; PLATELET ESTIMATE NORMAL
[2018-10-03] MEDS ORDERED: POTASSIUM CHLORIDE 20MEQ TABLET SR PO NR (11:15)
[2018-10-03 12:00] VITALS: BP 107/69
[2018-10-03] MEDS: INSULIN LISPRO 100 UNITS/ML SUBCUT SCH ×3 (12:40→21:00)
[2018-10-03] MEDS ORDERED: IOHEXOL-350 100 ML BOTTLE ONE (12:59)
[2018-10-03] MEDS: SODIUM CHLORIDE 0.9% 1,000 ML IV SCH (13:49)
[2018-10-03 16:00] VITALS: BP 107/77
[2018-10-03] MEDS: GUAIFENESIN 200MG/10ML SUGAR FREE UDC PO PRN (17:48)
[2018-10-03] MEDS: IBUPROFEN 600MG TABLET PO PRN (18:21)
[2018-10-03 20:00] VITALS: BP 105/71
[2018-10-04] VITALS (7 sets, daily range): BP systolic 92–120; BP diastolic 52–67
[2018-10-04] MEDS: SODIUM CHLORIDE 0.9% 1,000 ML IV SCH ×2 (01:53→19:15)
[2018-10-04] MEDS: BLOOD SUGAR DIAGNOSTIC STRIP TEST SCH ×4 (05:43→20:09)
[2018-10-04] MEDS: GABAPENTIN 300MG CAPSULE PO SCH ×3 (05:45→21:05)
[2018-10-04] MEDS: INSULIN LISPRO 100 UNITS/ML SUBCUT SCH ×4 (05:47→20:09)
[2018-10-04] MEDS: FUROSEMIDE 40MG/4ML VIAL IV SCH (08:37)
[2018-10-04] MEDS: PANTOPRAZOLE SODIUM 40 MG/VIAL IV SCH (08:37)
[2018-10-04] MEDS: FERROUS SULFATE 325MG TABLET PO SCH ×3 (08:38→18:23)
[2018-10-04] MEDS: DILTIAZEM HCL 120MG CAPSULE CD 24HR PO SCH (08:38)
[2018-10-04] MEDS: IBUPROFEN 600MG TABLET PO PRN (10:15)
[2018-10-04] MEDS ORDERED: HYDROCODONE/ACETAMINOPHEN 5/325MG TABLET PO PRN (10:30)
[2018-10-04 11:07] LABS: HEMATOCRIT 26.9 % (36.0-48.0); HEMOGLOBIN 8.3 g/dL (12.0-16.0); MEAN CORPUSCULAR HEMOGLOBIN 24.9 pg (28.0-32.0); MEAN CORPUSCULAR VOLUME 80.6 fL (81.0-99.0); PLATELET 170 x1000/uL (130-400); RED BLOOD CELL COUNT 3.34 mill/uL (4.2-5.4); RED CELL DISTRIBUTION WIDTH 23.6 % (11.6-14.6)
[2018-10-04 11:18] LABS: CHLORIDE 100 mEq/L (98-107)
[2018-10-04] MEDS ORDERED: SIMETHICONE 80MG TABLET CHEW PO PRN (13:15)
[2018-10-04] MEDS: BENZONATATE 100MG CAPSULE PO SCH ×2 (13:17→21:05)
[2018-10-04] MEDS: GUAIFENESIN-DM 200MG-20MG/10ML UDC PO SCH ×3 (13:17→23:53)
[2018-10-04] MEDS: LEVOFLOXACIN 500MG TABLET PO SCH (13:17)
[2018-10-04] MEDS ORDERED: POTASSIUM CHLORIDE INJ 40 MEQ in DEXT 5% WATER 250 ML IV SCH (14:30)
[2018-10-04] MEDS ORDERED: POTASSIUM CHLORIDE 20MEQ TABLET SR PO NR (15:30)
[2018-10-04] MEDS: APIXABAN 5 MG TABLET PO SCH (16:27)
[2018-10-04] MEDS ORDERED: MAGNESIUM 2 G PREMIX 50 ML IV NR (21:00)
[2018-10-04] MEDS: TRAMADOL 50MG TABLET PO PRN (21:06)
[2018-10-04] MEDS ORDERED: MAGNESIUM 4 G PREMIX 100 ML IV NR (23:00)
[2018-10-05 04:00] VITALS: BP 102/63
[2018-10-05] MEDS: BENZONATATE 100MG CAPSULE PO SCH ×2 (06:06→13:51)
[2018-10-05] MEDS: GUAIFENESIN-DM 200MG-20MG/10ML UDC PO SCH ×2 (06:06→11:54)
[2018-10-05] MEDS: TRAMADOL 50MG TABLET PO PRN ×2 (06:06→11:54)
[2018-10-05] MEDS: GABAPENTIN 300MG CAPSULE PO SCH ×2 (06:06→13:51)
[2018-10-05] MEDS: BLOOD SUGAR DIAGNOSTIC STRIP TEST SCH ×2 (06:29→11:54)
[2018-10-05] MEDS: INSULIN LISPRO 100 UNITS/ML SUBCUT SCH ×2 (06:29→11:58)
[2018-10-05 06:34] LABS: HEMATOCRIT. 23.7 % (36.0-48.0); HEMOGLOBIN. 7.5 g/dL (12.0-16.0); MEAN CORPUSCULAR HEMOGLOBIN 25.2 pg (28.0-32.0); MEAN CORPUSCULAR VOLUME 79.3 fL (81.0-99.0); PLATELET 197 x1000/uL (130-400); RED BLOOD CELL COUNT 2.99 mill/uL (4.2-5.4); RED CELL DISTRIBUTION WIDTH 23.9 % (11.6-14.6)
[2018-10-05 06:41] LABS: CHLORIDE 103 mEq/L (98-107)
[2018-10-05 07:02] LABS: PHOSPHORUS 2.5 mg/dL (2.5-4.9)
[2018-10-05] MEDS: SODIUM CHLORIDE 0.9% 1,000 ML IV SCH (07:54)
[2018-10-05 08:00] VITALS: BP 99/59
[2018-10-05] MEDS: DILTIAZEM HCL 120MG CAPSULE CD 24HR PO SCH (09:00)
[2018-10-05] MEDS: FERROUS SULFATE 325MG TABLET PO SCH ×2 (09:21→11:54)
[2018-10-05] MEDS: PANTOPRAZOLE SODIUM 40 MG/VIAL IV SCH (09:21)
[2018-10-05] MEDS: APIXABAN 5 MG TABLET PO SCH (09:21)
[2018-10-05] MEDS: FUROSEMIDE 40MG/4ML VIAL IV SCH (09:21)
[2018-10-05 09:47] LABS: PLATELET ESTIMATE NORMAL
[2018-10-05 11:46] VITALS: BP 102/65
[2018-10-05] MEDS: LEVOFLOXACIN 500MG TABLET PO SCH (11:54)
[2018-10-05 12:00] VITALS: BP 102/65
[2018-10-05] MEDS ORDERED: POTASSIUM CHLORIDE 20MEQ TABLET SR PO NR (15:00)
[2018-10-05 16:00] VITALS: BP 115/74
[2018-10-05] MEDS ORDERED: APIXABAN 5 MG TABLET PO SCH (17:00)
== END 2018-10-05 16:25 | disposition home or self-care (01) | DRG 291 ==
LOC: ER 15:48 → 5EST 17:18 → EDBEDREQTM 17:24 → EDBEDREQ 17:24 → ENRESERV 23:25 → 8WST 10-01 11:33
PROVIDERS: ADMIT Internal Medicine; ATTEND Internal Medicine
DX: I11.0 Hypertensive heart disease with heart failure (principal); I82.0 Budd-Chiari syndrome; K86.3 Pseudocyst of pancreas; D61.818 Other pancytopenia; E87.1 Hypo-osmolality and hyponatremia; D68.59 Other primary thrombophilia; J98.11 Atelectasis; I48.0 Paroxysmal atrial fibrillation; I50.33 Acute on chronic diastolic (congestive) heart failure; J06.9 Acute upper respiratory infection, unspecified; G56.00 Carpal tunnel syndrome, unspecified upper limb; D73.5 Infarction of spleen; D50.9 Iron deficiency anemia, unspecified; E86.0 Dehydration; E87.6 Hypokalemia; G89.4 Chronic pain syndrome; Z79.01 Long term (current) use of anticoagulants; Z79.899 Other long term (current) drug therapy; Z88.6 Allergy status to analgesic agent; Z88.5 Allergy status to narcotic agent; Z79.1 Long term (current) use of non-steroidal anti-inflammatories (NSAID)
CPT/HCPCS: 36415; 71045; 74174; 74176; 80048; 80061; 80076; 80162; 80305; 80320; 82150; 82270; 82550; 82553; 82607; 82728; 82746; 82962; 83036; 83540; 83550; 83735; 83880; 84100; 84145; 84439; 84443; 84481; 84484; 85014; 85018; 85027; 85044; 85651; 86705; 86709; 86803; 87340; 87389; 87493; 87804; 93005; 93306; 93970; 94640; 96365; 96375; 97162; 97166; 97530; 97535; 99291; C9113; J1160; J1815; J1940; J2270; J2405; J2765; J3475; J3480; J3490; J7030; J7060; Q9967; G0480